=== PATIENT | female | born 1940 | race Caucasian/White ===

== ENCOUNTER 2023-04-29 19:25 | Emergency (ER) | payer OTHER, SELFPAY ==
[2023-04-29 19:27] VITALS: BP 124/82
--- NOTE | 2023-04-29 20:57 | ED.GENMED ---
History of Present Illness
General
Chief Complaint: Anal/Rectal Problem
Source: patient
Exam Limitations: none
Time Seen by Provider: 04/29/23 19:53
Nursing documentation reviewed up to this point in time: agreed with
Travel History
Have you had any contact with someone who has COVID-19?: No
Do you have any symptoms of coronavirus? Fever > 100 degrees, chills, cough, shortness of breath, sore throat, loss of taste or smell, muscle aches, or headache?: No
History of Present Illness
History of Present Illness:
84-year-old female presents with constipation unsure when her last bowel movement was perhaps a day or so ago she has been on a keto diet, who is scheduled to have a colonoscopy but on hold due to A-fib she is scheduled to have a Watchman procedure,
no blood in her stool she took some [id number]-[id number]-hmybhyo remedies without much relief she tried to disimpact herself no fevers no bloody stools no trouble urinating
Past History
Past History
ED Past Medical History: Arrthythmia (Paroxysmal A. fib), HTN and Hypercholesterolemia
ED Past Surgical History:
Social History
Tobacco: Non-smoker
Alcohol: None
Drug: None
Living: with family
Phy Exam
Physical Exam
Physical Exam:
Physical Exam
General: no apparent distress, not acutely ill
Neck: No
Heart: s1/s2 regular rate and rhythm, no murmur. equal radial pulses.
Lungs: no acute respiratory distress.
Abdomen: Soft, vertical scar nontender rectal moderate amount of semisolid solid stool few centimeters from the anal verge
Neuro: alert and oriented. no focal neurological deficits
Skin: no rash
Psychiatric: well kept. interactive and cooperative
Extremities: no edema.
Course
Orders/Labs/Results
Orders:
Orders
04/29/23 20:55
Enema- Treatment ONCE
Type: Tap Water
04/29/23 21:30
Magnesium Citrate [Citroma] 300 ml PO ONCE ONE
Vital Signs
Initial and Last Documented VS:
Initial Vital Signs
Temp Pulse Resp BP Pulse Ox
97.4 F 117 18 124/82 100
04/29/23 19:27 04/29/23 19:27 04/29/23 19:27 04/29/23 19:27 04/29/23 19:27
Last Documented Vital Signs
Temp Pulse Resp BP Pulse Ox
97.4 F 117 18 124/82 100
04/29/23 19:27 04/29/23 19:27 04/29/23 19:27 04/29/23 19:27 04/29/23 19:27
MDM/Problems Addressed
Differential Diagnosis Includes:
Constipation fecal impaction dietary changes may be playing a role, no signs of obstruction by history physical
MDM/Problems Addressed:
Constipation
Chronic conditions affecting care:
A-fib not anticoagulated prior abdominal
Chronic conditions affecting care: Arrhythmia and Previous abdomnial surgery
Acute Exacerbation and/or Progression of Chronic Illness: Arrhythmia and Previous abdomnial surgery
*Critical Care Note
Total Time (30-74mins, 75-104mins- exclusive of procedures): Not Applicable
Update Note
Update Note:
Update patient with some relief with an enema will give mag citrate
ED Attending Note
-
Portions of this chart may have been created with voice recognition software.� Occasional wrong word or��sound alike� substitutions may have occurred due to the inherent limitations of voice recognition software.
Discharge Plan
Departure
Patient Disposition: Home (Routine Discharge)
Date of Disposition: 04/29/23
Time of Disposition: 22:29
Patient with high blood pressure during this ER visit?: No
Condition: Good
Discharge Problem:
Constipation
Instructions: Constipation, Adult (DC)
Prescriptions:
New
lactulose 20 gram/30 mL solution
20 g PO BID PRN (Reason: Constipation) Qty: 1200 0RF
Referrals:
Mehdi Batista MD [Family Provider] - Next open appointment
Interventions
Interventions:
*Risk Screen - Suicide Last Done: 04/29/23 19:31
*General Assessment Last Done: 04/29/23 19:31
*Neglect/Abuse Screening Last Done: 04/29/23 19:31
VZ-Rhuuqn-Shloxnjcnx Assessment Last Done: 04/29/23 20:11
ED-Skin Assessment Last Done: 04/29/23 20:11
[2023-04-29] MEDS: CITROMA 300 ML PO (22:32)
== END 2023-04-29 22:35 | disposition home or self-care (01) ==
LOC: EMR 19:25
PROVIDERS: EMERGENCY PHYSICIAN Emergency Medicine; FAMILY PHYSICIAN Internal Medicine
DX: K59.00 Constipation, unspecified (principal); I48.0 Paroxysmal atrial fibrillation; I10 Essential (primary) hypertension; E78.00 Pure hypercholesterolemia, unspecified
CPT/HCPCS: 99282